=== PATIENT | female | born 1960 | race Caucasian/White ===

== ENCOUNTER 2016-07-15 12:02 | Outpatient (CLI) | payer OTHER ==
[~2016-07-15 12:02] MED LIST: 0.9 % SODIUM CHLORIDE PF 10 ML VIAL IJ ONE; Lidocaine 1% 5ml(IM or SUTURE)(PAIN CLINIC) ONE; TRIAMCINOLONE ACETONID 40MG/ML VIAL ONE
--- NOTE | 2016-07-15 14:17 | HISTORY AND PHYSICAL REPORT ---
REFERRING PHYSICIAN: Dr. Irma Hernandes HISTORY OF PRESENT ILLNESS: I had the opportunity of seeing Paige Hogue today as an outpatient at [facility]. As you are aware, Paige is a delightful 55-year-old white female who has a history of back pain. She said that over the past 6 months to a year, she has been noticing increasing symptoms in her left hip and now into the left thigh and over both the L4 and L5 dermatomal distributions. She said that at one point several years ago, she had a lumbar epidural steroid injection done for back pain, which she had a series of 3 shots which were not effective. She furthermore tells me at that point she was not having leg pain and that the shots were ineffective at treating her low back pain, which has been the long-term complaint, with the leg pain having started as noted above. She says the symptoms are worse with standing, walking, and exercise and she does regular exercises at the [facility]. She says the treadmill seems to exacerbate the condition. She denies pain on the right side. She denies symptoms of incontinence. She denies neurogenic claudication. She has symptoms of radiculitis. She has failed exercise, stretching, chiropractic manipulation, and nonsteroidal antiinflammatories. At this point, she presents for treatment. PAST MEDICAL HISTORY: 1. History of lumbar herniated disk. 2. Chronic back pain. 3. High cholesterol. PAST SURGICAL HISTORY: 1. x2 in 1985 and 1988. 2. Complete hysterectomy in 2008. CURRENT DAILY MEDICATIONS: 1. Tylenol Extra Strength b.i.d and p.r.n. 2. Gemfibrozil 600 mg b.i.d. 3. Estradiol 1 mg daily. 4. Atorvastatin 20 mg daily. 5. Cyclobenzaprine 5 mg every 8 hours p.r.n. 6. She is currently on a prednisone taper x1 week. ALLERGIES: She has no known drug allergies. SOCIAL HISTORY: She was a former smoker of 3 cigarettes per day. She quit smoking in 1987. She currently drinks alcohol socially. She denies recreational drug use. She has been for the past 33 years. She has 3 children. She lives at home with her and 1 daughter. She completed the 12th grade. Her occupation is a paraprofessional. She is currently employed. She is not currently disabled. FAMILY HISTORY: Father with diabetes. Mother with stroke, cancer, and pain problems. Siblings with pain problems and thyroid disease. REVIEW OF SYSTEMS: In the past month or so, she reports a weight loss, night sweats, cough or cold. Pain is worse with lying, standing, bending, sitting, walking, getting up from a chair, driving, and in any position for too long. Pain is improved with lying supine. PHYSICAL EXAMINATION: General: This is a well-nourished, well-developed white female in no apparent distress. Vital Signs: BP: 120/74, P: 80, R: 18, oxygen saturation is 98% on room air. HEENT: Pupils are equal, round, and reactive to light and accommodation. Extraocular movements intact. No facial droop. Neck: There is full range of motion of the cervical spine. No evidence of adenopathy. Thyroid is nontender, no enlarged. Carotids are without bruits. Chest: Clear to auscultation bilaterally. Normal. Chest excursion. Heart: Regular rate and rhythm without murmur. Abdomen: Benign. Normoactive bowel sounds. Motor/sensory: Intact in the upper and lower extremities. Moves all extremities freely. Back: There are normal cervical, thoracic and lumbar curvatures. There are negative sacroiliac joint findings bilaterally. No evidence of pain or tenderness over the facet joints. Negative piriformis bilaterally. Extremities: Strength is 5/5 and equal in the lower extremities with dorsiflexion and plantar flexion intact. There is a negative straight leg raise. Negative femoral nerve stretch. Negative Maria Antonia. Reflexes are 2+ and equal at the patellar tendon and Achilles tendon. DIAGNOSTIC STUDIES: An MRI was performed at [facility] on July 10, 2016, and reveals L4-L5 and L5-S1 degenerative disk disease and multi-level spondylosis primarily at L3- L4, L4-L5, and L5-S1 with facet and ligamentum flavum hypertrophy. There is a grade 1 spondylolisthesis with a disk protrusion at L4-L5. There is a prominent left-sided L4-L5 facet osteophyte on a contacting descending L5 nerve root. ASSESSMENT: 1. L4-L5 subarticular stenosis. 2. Back pain associated with multi-level lumbar spondylosis. 3. Left L4-L5 radiculitis. PLAN: At this point, I did discuss activities, stretching, strengthening, and activities that would help stretch the spine and aid the injection in her recovery. Her findings are also consistent with spondylolytic back pain which is likely why the epidural injection that was done several years ago was not successful. At this point, I am going to place a palliative left L5 epidural steroid injection. I will consider facet medial branch blocks on follow up if her leg pain has resolved. cc: Dr. Irma ALLEN
--- NOTE | 2016-07-23 14:55 | LESI WITH FLUORO ---
REFERRING PHYSICIAN: Dr. Irma Hernandes OPERATIVE PROCEDURE: Left L5-[id number] steroid injection with fluoroscopic guidance. DESCRIPTION OF PROCEDURE: The risks and benefits were discussed with the patient including the risk of infection, bleeding, nerve injury, and headache, as well as the risks of steroid exposure causing hyperglycemia, hypertension, osteoporosis, or increased infectious risks. The patient understood these risks and agreed to proceed. Consent was obtained prior to the procedure. The patient was placed in the prone position on the fluoroscopy table with a pillow underneath the abdomen to afford anterior flexion of the lumbar spine. The low back was cleaned and a sterile drape was applied. An 18 gauge thin wall Tuohy epidural needle was advanced with normal saline loss of resistance technique and direct fluoroscopic guidance with a left paramedian approach at the L5-S1 level. On obtaining loss of resistance to normal saline, it was verified that there was no aspiration of CSF or blood. Furthermore, the needle tip location was verified with lateral and AP fluoroscopic views. Omnipaque 240 myelogram dye were injected through the epidural needle. The distribution of the dye was noted to be within the desired distribution within the lumbar epidural space. Triamcinolone acetate and 1% of lidocaine was injected into the epidural space. The stylet was replaced in the needle and the needle was removed from the back. The patient tolerated the procedure well. The back was cleaned and a bandage was applied over the injection site. The patient was monitored for 20 minutes following the procedure. During this time, the vital signs remained stable and the patient experienced no adverse sequelae. The patient was discharged in good condition. ASSESSMENT: 1. Left lower extremity radicular pain. 2. Sciatica. PLAN: Left L5-[id number] steroid injection with fluoroscopic guidance today. FOLLOWUP: Return to clinic if problems develop or worsen. cc: Dr. Irma ALLEN
== END 2016-07-15 12:04 ==
LOC: OUT 12:02
PROVIDERS: ATTEND Anesthesiology Pain Medicine
DX: M54.42 Lumbago with sciatica, left side (principal)
CPT/HCPCS: J3301; Q9966; 99214

== ENCOUNTER 2016-08-12 12:58 | Outpatient (CLI) | payer OTHER ==
[~2016-08-12 12:58] MED LIST changes: -0.9 % SODIUM CHLORIDE PF 10 ML VIAL IJ ONE; +BUPIVACAINE HCL/PF 2.5 MG/ML 10ML VIAL IV ONE
--- NOTE | 2016-08-14 10:49 | LUMBAR TFESI ---
REFERRING PHYSICIAN: YAQUELIN Núñez SUBJECTIVE: I had the opportunity of seeing Paige Hogue today as an outpatient at [facility]. This is a very nice lady with left L5 radiculitis. I had placed an L5-S1 epidural injection for L4-L5 grade 1 spondylolisthesis associated with a large facet spur on the left side contacting the descending L5 nerve root and she got about 2 weeks of improvement followed by return of pain. She kept a very detailed log and it appears that she did a great deal of exercise in that period of time including elliptical and treadmill and may have not allowed the medication to work. At this point, I am going to place a left L5 transforaminal injection and see if this improves her condition. I did talk to her about surgical decompression. I reviewed the films with her personally today and showed her the area of concern at the L4-L5 level. She is agreement today and we will proceed. PROCEDURE: Left L5 transforaminal epidural steroid injection with fluoroscopic guidance. DESCRIPTION OF PROCEDURE: The risks and benefits were discussed with the patient including the risks of infection, bleeding, nerve injury, and headache, as well as the risks of steroid exposure causing hyperglycemia, hypertension, osteoporosis, or increased infectious risk. The patient understood these risks and agreed to proceed. Consent was obtained. The patient was placed in the prone position on the fluoroscopy table with a pillow underneath the abdomen to afford anterior flexion of the lumbar spine. The low back was cleaned and a sterile drape was applied. AP, lateral and oblique fluoroscopic views were obtained identifying the L5 vertebral body and L5 transverse process. An oblique view of the transverse process and pedicles was obtained. A 25-gauge Quincke tip 3.5 spinal needle was advanced under direct-beam (barrel view) fluoroscopic guidance until the tip contacted the superior-most aspect of the L5 superior articulating process. The needle was then directed superiorly and medially a few millimeters towards the intervertebral foramen. A lateral fluoroscopic view was obtained and the needle was advanced into the inferior/anterior aspect of the L5 neural foramen ( L5-S1 intervertebral foramen) epidural space. It was verified that there was no aspiration of CSF or blood. Omnipaque 240 myelogram dye was injected through the needle. The dye was noted to course in the desired distribution within the lumbar foramen epidural space. Triamcinolone acetate and 1% lidocaine and 0.25 % bupivacaine was injected into the epidural space. The stylet was replaced in the needle and the needle was removed from the back. The patient tolerated the procedure well. The back was cleaned and a bandage was applied over the injection site. The patient was monitored for 20 minutes following the procedure. During this time the vital signs remained stable and the patient experienced no adverse sequelae. The patient was discharged home in good condition. ASSESSMENT: 1. Lumbar intervertebral disk disorder with radicular pain. 2. Lumbosacral radiculitis/neuritis. 3. L4-L5 subarticular stenosis and facet hypertrophy. PLAN: Left L5 transforaminal epidural steroid injection with fluoroscopic guidance. FOLLOWUP: Follow up next month. cc: YAQUELIN Núñez
== END 2016-08-12 13:00 ==
LOC: OUT 12:58
PROVIDERS: ATTEND Anesthesiology Pain Medicine
DX: M51.16 Intervertebral disc disorders with radiculopathy, lumbar region (principal); M48.06 Spinal stenosis, lumbar region
CPT/HCPCS: J3301; J3490; Q9966; 64483; 64493; 99214

== ENCOUNTER 2016-09-09 09:46 | Outpatient (CLI) | payer OTHER ==
--- NOTE | 2016-09-10 14:40 | LUMBAR TFESI ---
SUBJECTIVE: Ms. Hogue follows up with me today with a history of L4-L5 disk protrusion and subarticular stenosis and left-sided leg pain. She originally got no improvement with an intralaminar epidural steroid injection and now she is much improved following a transforaminal injection. She said she had no pain for 10 days following the last procedure, which was a left L5 transforaminal injection last month. Today, we discussed exercises and stretching. The fact that her leg pain is better and that she should like to avoid surgery. I did offer her a surgical consultation. At this point, she would like to hold off. For now, she got a great deal of improvement with the left L5 transforaminal injection and I am going to repeat that injection today under fluoroscopy and she is also having some trochanteric bursitis. PROCEDURE Left L5 transforaminal epidural steroid injection with fluoroscopic guidance. DESCRIPTION OF PROCEDURE: The risks and benefits were discussed with the patient including the risks of infection, bleeding, nerve injury, and headache, as well as the risks of steroid exposure causing hyperglycemia, hypertension, osteoporosis, or increased infectious risk. The patient understood these risks and agreed to proceed. Consent was obtained. The patient was placed in the prone position on the fluoroscopy table with a pillow underneath the abdomen to afford anterior flexion of the lumbar spine. The low back was cleaned and a sterile drape was applied. AP, lateral and oblique fluoroscopic views were obtained identifying the left L5 vertebral body and the L5 transverse process. An oblique view of the transverse process and pedicles was obtained. A 23-gauge, 3.5 spinal needle was advanced under direct-beam (barrel view) fluoroscopic guidance until the tip contacted the superior-most aspect of the left S1 superior articulating process. The needle was then directed superiorly and medially a few millimeters towards the intervertebral foramen. A lateral fluoroscopic view was obtained and the needle was advanced into the inferior/anterior aspect of the L5 neural foramen (L5-S1 intervertebral foramen) epidural space. It was verified that there was no aspiration of CSF or blood. Omnipaque 240 myelogram dye was injected through the needle. The dye was noted to course in the desired distribution within the lumbar foramen epidural space. Triamcinolone acetate, 1% lidocaine, and 0.25% bupivacaine was injected into the epidural space. The stylet was replaced in the needle and the needle was removed from the back. The patient tolerated the procedure well. The back was cleaned and a bandage was applied over the injection site. The patient was monitored for 20 minutes following the procedure. During this time the vital signs remained stable and the patient experienced no adverse sequelae. The patient was discharged home in good condition. ASSESSMENT: 1. Left lumbar radicular pain. 2. Radiculitis/neuritis. FOLLOWUP: Return to clinic if problems develop or worsen. TIFFANY
== END 2016-09-09 09:47 ==
LOC: OUT 09:46
PROVIDERS: ATTEND Anesthesiology Pain Medicine
DX: M54.16 Radiculopathy, lumbar region (principal)
CPT/HCPCS: J3301; J3490; 64483; 99214

== ENCOUNTER 2016-10-14 09:45 | Outpatient (CLI) | payer OTHER ==
--- NOTE | 2016-10-14 14:19 | LUMBAR TFESI ---
SUBJECTIVE: Ms. Hogue comes in today in follow up. This is a patient with right lower extremity radiculitis associated with L4-L5 lateral disk protrusion and she has had marked improvement with a right L5 transforaminal injection. Unfortunately , the symptoms continue and she got recurrence at about 19 days after the injection. She says that the pain is going back to the pre-procedure level. She has had 2 transforaminal injections, the first lasting 10 days and the second lasting 19 days. She has a significant [id number] expense for treatment and I have talked to her about a possible surgical consultation. I did offer her 1 further injection as well and at this point, we are going to check her benefits and I will either treat her today or follow her up after she has had an opportunity to talk to a spine surgeon. PROCEDURE: Left L5 transforaminal epidural steroid injection with fluoroscopic guidance. DESCRIPTION OF PROCEDURE: The risks and benefits were discussed with the patient including the risks of infection, bleeding, nerve injury, and headache, as well as the risks of steroid exposure causing hyperglycemia, hypertension, osteoporosis, or increased infectious risk. The patient understood these risks and agreed to proceed. Consent was obtained. The patient was placed in the prone position on the fluoroscopy table with a pillow underneath the abdomen to afford anterior flexion of the lumbar spine. The low back was cleaned and a sterile drape was applied. AP, lateral and oblique fluoroscopic views were obtained identifying the L5 vertebral body and L5 transverse process. An oblique view of the transverse process and pedicles was obtained. A 23-gauge Quincke tip 3.5 spinal needle was advanced under direct-beam (barrel view) fluoroscopic guidance until the tip contacted the superior-most aspect of the S1 superior articulating process. The needle was then directed superiorly and medially a few millimeters towards the intervertebral foramen. A lateral fluoroscopic view was obtained and the needle was advanced into the inferior/anterior aspect of the L5 neural foramen ( L5-[id number] foramen) epidural space. It was verified that there was no aspiration of CSF or blood. Omnipaque 240 myelogram dye was injected through the needle. The dye was noted to course in the desired distribution within the lumbar foramen epidural space. The patient did report some reproduction of the low back and /or lower extremity pain symptoms; this reproduction of symptoms was short-lived, ceasing within a minute. Triamcinolone acetate, 1% lidocaine, and 0.25% of bupivacaine was injected into the epidural space. The stylet was replaced in the needle and the needle was removed from the back. The patient tolerated the procedure well. The back was cleaned and a bandage was applied over the injection site. The patient was monitored for 20 minutes following the procedure. During this time the vital signs remained stable and the patient experienced no adverse sequelae. The patient was discharged home in good condition. ASSESSMENT: 1. Lumbar intervertebral disk disorder with radicular pain. 2. Lumbosacral radiculitis/neuritis. PLAN: Left L5 transforaminal epidural steroid injection with fluoroscopic guidance. FOLLOWUP: Return to clinic if problems develop or worsen. cc: Dr. Irma ALLEN
== END 2016-10-14 09:46 ==
LOC: OUT 09:45
PROVIDERS: ATTEND Anesthesiology Pain Medicine
DX: M51.16 Intervertebral disc disorders with radiculopathy, lumbar region (principal); M54.17 Radiculopathy, lumbosacral region
CPT/HCPCS: 64483; 99214; J3301; Q9966

== ENCOUNTER 2017-02-10 10:55 | Outpatient (CLI) | payer OTHER ==
[2017-02-10 12:13] LABS: eGFR (African) > 60; eGFR (Non-African) > 60
== END 2017-02-10 10:56 ==
LOC: LABRHC 10:55
PROVIDERS: ATTEND Family Medicine
DX: R30.0 Dysuria (principal); E78.2 Mixed hyperlipidemia; R60.0 Localized edema
CPT/HCPCS: 36415; 80053; 80061; 84443; 87086; 87186

== ENCOUNTER 2017-08-05 10:43 | Outpatient (CLI) | payer OTHER ==
[2017-08-05 11:30] LABS: eGFR (African) > 60; eGFR (Non-African) > 60
== END 2017-08-05 10:44 ==
LOC: LAB 10:43
PROVIDERS: ATTEND Family Medicine
DX: E78.2 Mixed hyperlipidemia (principal)
CPT/HCPCS: 36415; 80053; 80061